=== PATIENT | male | born 1950 | race Asian ===

== ENCOUNTER 2019-03-14 16:09 | Emergency (ER) | payer SELFPAY ==
[~2019-03-14] VITALS: Ht 167.6 cm; Wt 65.8 kg
[2019-03-14 21:08] VITALS: BP 125/84
== END 2019-03-14 21:08 | disposition home or self-care (01) ==
LOC: ED 16:09
DX: S52.612A Displaced fracture of left ulna styloid process, initial encounter for closed fracture (principal); S01.411A Laceration without foreign body of right cheek and temporomandibular area, initial encounter; S00.83XA Contusion of other part of head, initial encounter; S80.02XA Contusion of left knee, initial encounter; S80.01XA Contusion of right knee, initial encounter; S60.222A Contusion of left hand, initial encounter; S60.221A Contusion of right hand, initial encounter; S09.8XXA Other specified injuries of head, initial encounter; Z88.0 Allergy status to penicillin; Z95.1 Presence of aortocoronary bypass graft; V28.4XXA Motorcycle driver injured in noncollision transport accident in traffic accident, initial encounter; Y93.55 Activity, bike riding; Y92.413 State road as the place of occurrence of the external cause; Y99.8 Other external cause status
CPT/HCPCS: A4570